=== PATIENT | male | born 1975 | race American Indian/Alaskan Native ===

== ENCOUNTER 2016-10-16 22:59 | Emergency (ER) | payer OTHER ==
[2016-10-17] MEDS ORDERED: MORPHINE IM ONE
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
[2016-10-17 00:35] VITALS: BP 120/69
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
== END 2016-10-17 02:36 | disposition home or self-care (01) ==
LOC: ED 22:59
DX: M54.2 Cervicalgia (principal); V43.62XA Car passenger injured in collision with other type car in traffic accident, initial encounter; Y93.89 Activity, other specified; Y99.8 Other external cause status; Y92.488 Other paved roadways as the place of occurrence of the external cause
CPT/HCPCS: 70450; 71010; 72125; 96372; 99284; J2270